=== PATIENT | female | born 2000 | race African-American/Black ===

== ENCOUNTER 2020-06-25 13:39 | Emergency (ER) | payer MEDICAID ==
[~2020-06-25] VITALS: Ht 157.5 cm; Wt 88.0 kg
[2020-06-25 13:43] VITALS: BP 124/67
== END 2020-06-25 15:38 | disposition home or self-care (01) ==
LOC: ER 13:39
DX: R10.9 Unspecified abdominal pain (principal); R25.2 Cramp and spasm
CPT/HCPCS: 36415; 84702; 99283